=== PATIENT | female | born 1965 | race African-American/Black ===

== ENCOUNTER 2018-07-06 17:36 | Emergency (ER) | payer OTHER ==
[~2018-07-06] VITALS: Ht 162.6 cm; Wt 81.6 kg
[2018-07-06 17:44] VITALS: BP_SYST 134
[2018-07-06] MEDS ORDERED: KETOROLAC TROMETHAMINE 60 MG/2 ML VIAL IM ONE (19:00)
[2018-07-06 19:52] VITALS: BP_SYST 137
== END 2018-07-06 19:52 | disposition home or self-care (01) ==
LOC: SED 17:36
DX: S16.1XXA Strain of muscle, fascia and tendon at neck level, initial encounter (principal); Z98.51 Tubal ligation status; R03.0 Elevated blood-pressure reading, without diagnosis of hypertension; V43.52XA Car driver injured in collision with other type car in traffic accident, initial encounter; Y93.89 Activity, other specified; Y92.410 Unspecified street and highway as the place of occurrence of the external cause; Y99.8 Other external cause status
CPT/HCPCS: 72040; 96372; 99284; J1885; J7040

== ENCOUNTER 2022-08-24 15:59 | Emergency (ER) | payer OTHER ==
[~2022-08-24] VITALS: Ht 160 cm; Wt 74.8 kg
[2022-08-24 16:07] VITALS: BP_SYST 144
[2022-08-24] MEDS ORDERED: OSEL75CA PO ×2 (16:48→16:56)
[2022-08-24] MEDS ORDERED: NAPR-690 PO ×2 (16:48→16:56)
[2022-08-24 16:58] VITALS: BP_SYST 144
== END 2022-08-24 16:58 | disposition home or self-care (01) ==
LOC: SED 15:59
DX: J06.9 Acute upper respiratory infection, unspecified (principal); Z79.899 Other long term (current) drug therapy
CPT/HCPCS: 99283